=== PATIENT | female | born 1995 | race Caucasian/White ===

== ENCOUNTER 2017-06-21 14:04 | Emergency (ER) | payer BC ==
[2017-06-21] MEDS ORDERED: IBUPROFEN 600 MG TAB PO ONE ×2 (14:56→15:02)
[2017-06-21] MEDS ORDERED: ACETAMINOPHEN 325 MG TAB ONE (14:57)
[2017-06-21] MEDS ORDERED: ACETAMINOPHEN 325 MG TAB PO ONE (15:02)
[2017-06-21] MEDS ORDERED: NS 1,000 ML IV ONE ×2 (15:02→15:08)
[2017-06-21] MEDS ORDERED: HYDROmorphONE/DILAUDID 1 MG/ML INJ IVP ONE (15:08)
[2017-06-21] MEDS ORDERED: METOCLOPRAMIDE 10 MG/2 ML VIAL IVP ONE (15:08)
--- NOTE | 2017-06-21 15:13 | EDPHY ---
H & P Stated Complaint: chills, nausea, fatigue, neck pain Time Seen by Provider: 06/21/17 15:03 HPI/ROS: CHIEF COMPLAINT: Headache HISTORY OF PRESENT ILLNESS: The patient is a 21-year-old female with no significant past medical headache who comes to the emergency department complaining of headache, fever and neck stiffness. She has a mild sore throat. No sinus congestion. No nausea vomiting. No urinary symptoms. She denies risk of . REVIEW OF SYSTEMS: Constitutional: See HPI EENTM: denies: blurred vision, double vision, nose congestion Respiratory: denies: cough, shortness of breath Cardiac: denies: chest pain, irregular heart rate, lightheadedness, palpitations Gastrointestinal/Abdominal: denies: abdominal pain, diarrhea, nausea, vomiting, blood streaked stools Genitourinary: denies: dysuria, frequency, hematuria, pain Musculoskeletal: denies: joint pain, muscle pain Skin: denies: lesions, rash, jaundice, bruising Neurological: denies: headache, numbness, paresthesia, tingling, dizziness, weakness Hematologic/Lymphatic: denies: blood clots, easy bleeding, easy bruising Immunologic/allergic: denies: HIV/AIDS, transplant EXAM: GENERAL: Well-appearing, well-nourished and in no acute distress. HEAD: Atraumatic, normocephalic. EYES: Pupils equal round and reactive to light, extraocular movements intact, sclera anicteric, conjunctiva are normal. ENT: TMs normal, nares patent, oropharynx clear without exudates. Moist mucous membranes. NECK: Normal range of motion, supple without lymphadenopathy or JVD. LUNGS: Breath sounds clear to auscultation bilaterally and equal. No wheezes rales or rhonchi. HEART: Regular rate and rhythm without murmurs, rubs or gallops. ABDOMEN: Soft, nontender, normoactive bowel sounds. No guarding, no rebound. No masses appreciated. BACK: No CVA tenderness, no spinal tenderness, step-offs or deformities EXTREMITIES: Normal range of motion, no pitting or edema. No clubbing or cyanosis. NEUROLOGICAL: Cranial nerves II through XII grossly intact. Normal speech, normal gait. 5/5 strength, normal movement in all extremities, normal sensation PSYCH: Normal mood, normal affect. SKIN: Warm, dry, normal turgor, no visible rashes or lesions. Source: Patient Exam Limitations: No limitations - Medical/Surgical History Hx Asthma: No Hx Chronic Respiratory Disease: No Hx Diabetes: No Hx Cardiac Disease: No Hx Renal Disease: No Hx Cirrhosis: No Hx Alcoholism: No Hx HIV/AIDS: No Hx Splenectomy or Spleen Trauma: No Other PMH: denies - Social History Smoking Status: Never smoked Alcohol Use: Sober Drug Use: None Constitutional: Initial Vital Signs Temperature (C) 38.2 C 06/21/17 14:17 Heart Rate 109 H 06/21/17 14:17 Respiratory Rate 18 06/21/17 14:17 Blood Pressure 121/82 H 06/21/17 14:17 O2 Sat (%) 93 06/21/17 14:17 O2 Delivery Mode Room Air Allergies/Adverse Reactions: No Known Allergies Allergy (Unverified 06/21/17 14:17) Home Medications: Medication Instructions Recorded NK [No Known Home Meds] 06/21/17 Medical Decision Making ED Course/Re-evaluation: 5:30 p.m. the patient feels completely better. We discussed her CSF and lab results. She is reassured. She is eager to go home. I encouraged rest, antipyretics and hydration. She agrees with this plan. We discussed indications for returning to the emergency department. Differential Diagnosis: Partial list of the Differential diagnosis considered include but were not limited to; viral syndrome, meningitis, influenza, mononucleosis, strep throat and although unlikely based on the history and physical exam, I also considered sepsis, pneumonia, urinary tract infection, head injury. I discussed these differential diagnoses and the plan with the patient as well as the usual and expected course. The patient understands that the diagnosis is provisional and that in medicine we are not always correct and that further workup is often warranted. Usual and customary warnings were given. All of the patient's questions were answered. The patient was instructed to return to the emergency department should the symptoms at all worsen or return, otherwise to followup with the physician as we discussed. - Data Points Laboratory Results: Laboratory Results 06/21/17 15:10 06/21/17 15:08 06/21/17 06/21/17 06/21/17 16:00 16:00 15:10 WBC RBC Hgb Hct MCV MCH MCHC RDW Plt Count MPV Neut % (Auto) Lymph % (Auto) [place] % (Auto) Eos % (Auto) Baso % (Auto) Nucleat RBC Rel Count Absolute Neuts (auto) Absolute Lymphs (auto) Absolute Monos (auto) Absolute Eos (auto) Absolute Basos (auto) Absolute Nucleated RBC Immature Gran % Immature Gran # PT INR Sodium Potassium Chloride Carbon Dioxide Anion Gap BUN Creatinine Estimated GFR Glucose Calcium Beta HCG, Qual NEGATIVE CSF Tube Number 4 1 CSF Appearance CLEAR CLEAR (CLEAR) (CLEAR) CSF Color COLORLESS COLORLESS (COLORLESS) (COLORLESS) CSF Supernatant COLORLESS COLORLESS (COLORLESS) (COLORLESS) CSF WBC 0 /mm3 /mm3 0 /mm3 /mm3 (0-5) (0-5) CSF RBC 7 /mm3 H /mm3 29 /mm3 H /mm3 (0-0) (0-0) CSF Glucose 59 mg/dL mg/dL (50-75) CSF Total Protein 11 mg/dL L mg/dL (12-60) Monoscreen NEGATIVE (NEGATIVE) 06/21/17 06/21/17 06/21/17 15:10 15:10 15:08 WBC 10.13 10^3/uL H 10^3/uL (3.80-9.50) RBC 4.61 10^6/uL 10^6/uL (4.18-5.33) Hgb 14.5 g/dL g/dL (12.6-16.3) Hct 42.7 % % (38.0-47.0) MCV 92.6 fL fL (81.5-99.8) MCH 31.5 pg pg (27.9-34.1) MCHC 34.0 g/dL g/dL (32.4-36.7) RDW 11.9 % % (11.5-15.2) Plt Count 234 10^3/uL 10^3/uL (150-400) MPV 9.7 fL fL (8.7-11.7) Neut % (Auto) 73.1 % % (39.3-74.2) Lymph % (Auto) 16.0 % % (15.0-45.0) [place] % (Auto) 9.6 % % (4.5-13.0) Eos % (Auto) 0.4 % L % (0.6-7.6) Baso % (Auto) 0.5 % % (0.3-1.7) Nucleat RBC Rel Count 0.0 % % (0.0-0.2) Absolute Neuts (auto) 7.41 10^3/uL H 10^3/uL (1.70-6.50) Absolute Lymphs (auto) 1.62 10^3/uL 10^3/uL (1.00-3.00) Absolute Monos (auto) 0.97 10^3/uL H 10^3/uL (0.30-0.80) Absolute Eos (auto) 0.04 10^3/uL 10^3/uL (0.03-0.40) Absolute Basos (auto) 0.05 10^3/uL 10^3/uL (0.02-0.10) Absolute Nucleated RBC 0.00 10^3/uL 10^3/uL (0-0.01) Immature Gran % 0.4 % % (0.0-1.1) Immature Gran # 0.04 10^3/uL 10^3/uL (0.00-0.10) PT 13.4 SEC SEC (12.0-15.0) INR 1.03 (0.83-1.16) Sodium 139 mEq/L mEq/L (134-144) Potassium 3.9 mEq/L mEq/L (3.5-5.2) Chloride 101 mEq/L mEq/L (97-110) Carbon Dioxide 23 mEq/l mEq/l (22-31) Anion Gap 15 mEq/L mEq/L (8-16) BUN 9 mg/dL mg/dL (7-23) Creatinine 0.7 mg/dL mg/dL (0.6-1.0) Estimated GFR > 60 Glucose 86 mg/dL mg/dL (70-100) Calcium 9.5 mg/dL mg/dL (8.5-10.4) Beta HCG, Qual CSF Tube Number CSF Appearance CSF Color CSF Supernatant CSF WBC CSF RBC CSF Glucose CSF Total Protein Monoscreen Microbiology Results: MICROBIOLOGY 06/21/17 16:00 Cerebral Spinal Fluid Gram Stain - Final Medications Given: Discontinued Medications Acetaminophen (Tylenol) 650 mg PO EDNOW ONE Stop: 06/21/17 15:03 Last Admin: 06/21/17 15:03 Dose: 650 mg Hydromorphone HCl (Dilaudid) 1 mg IVP EDNOW ONE Stop: 06/21/17 15:09 Last Admin: 06/21/17 15:14 Dose: 1 mg Sodium Chloride (Ns) 1,000 mls @ 0 mls/hr IV ONCE ONE PRN Reason: Wide Open Stop: 06/21/17 15:03 Last Admin: 06/21/17 15:09 Dose: 1,000 mls Sodium Chloride (Ns) 1,000 mls @ 0 mls/hr IV ONCE ONE; Wide Open PRN Reason: Protocol Stop: 06/21/17 15:09 Last Admin: 06/21/17 16:34 Dose: 1,000 mls Ibuprofen (Motrin) 600 mg PO EDNOW ONE Stop: 06/21/17 15:03 Last Admin: 06/21/17 15:04 Dose: 600 mg Metoclopramide HCl (Reglan Injection) 10 mg IVP EDNOW ONE Stop: 06/21/17 15:09 Last Admin: 06/21/17 15:14 Dose: 10 mg Departure - Departure Disposition: Home, Routine, Self-Care Clinical Impression: Fever Qualifiers: Fever type: unspecified Qualified Code(s): R50.9 - Fever, unspecified Headache Qualifiers: Headache type: unspecified Headache chronicity pattern: acute headache Intractability: not intractable Qualified Code(s): R51 - Headache Condition: Fair Instructions: Fever in Adults (ED), Acute Headache (ED) Referrals: NONE *PRIMARY CARE P,. [Primary Care Provider] - As per Instructions [facility] [Clinic] - As per Instructions Stand Alone Forms: School Excuse
[2017-06-21 15:31] LABS: % IMMATURE GRANULYOCYTES 0.4 % (0.0-1.1); ABSOLUTE IMMATURE GRANULOCYTES 0.04 10^3/uL (0.00-0.10); ADD DIFF? NO; ADD MORPH? NO; ADD SCAN? NO; ATYPICAL LYMPHOCYTE FLAG 0 (0-99); FRAGMENT RBC FLAG 0 (0-99); HEMATOCRIT 42.7 % (38.0-47.0); HEMOGLOBIN 14.5 g/dL (12.6-16.3); LEFT SHIFT FLG 0 (0-99); LIPEMIA HEMOLYSIS FLAG 90 (0-99); MEAN CELL HEMOGLOBIN 31.5 pg (27.9-34.1); MEAN CELL VOLUME 92.6 fL (81.5-99.8); MEAN PLATELET VOLUME 9.7 fL (8.7-11.7); PLATELET CLUMPS FLAG 0 (0-99); PLATELET COUNT 234 10^3/uL (150-400); RED BLOOD CELL COUNT 4.61 10^6/uL (4.18-5.33); RED CELL DISTRIBUTION WIDTH 11.9 % (11.5-15.2)
[2017-06-21 15:35] LABS: INR 1.03 (0.83-1.16); PROTIME(PATIENT) 13.4 SEC (12.0-15.0)
[2017-06-21 15:40] LABS: BHCG-QUALITATIVE NEGATIVE
[2017-06-21 16:13] LABS: ANION GAP 15 mEq/L (8-16); CARBON DIOXIDE 23 mEq/l (22-31); CHLORIDE 101 mEq/L (97-110); GLUCOSE 86 mg/dL (70-100); POTASSIUM 3.9 mEq/L (3.5-5.2); SODIUM 139 mEq/L (134-144)
[2017-06-21 16:14] LABS: MONO TEST NEGATIVE (NEGATIVE)
[2017-06-21 16:14] LABS: CALCIUM 9.5 mg/dL (8.5-10.4); CREATININE 0.7 mg/dL (0.6-1.0); GLOMERULAR FILTRATION RATE > 60
[2017-06-21 16:36] VITALS: RESP 20
[2017-06-21 16:50] LABS: CSF APPEARANCE CLEAR (CLEAR); CSF COLOR COLORLESS (COLORLESS); CSF SUPERNATANT COLORLESS (COLORLESS); WBC, CSF 0 /mm3 (0-5)
[2017-06-21 17:01] LABS: PROTEIN, CSF 11 mg/dL (12-60)
[2017-06-21 17:03] LABS: CSF APPEARANCE CLEAR (CLEAR); CSF COLOR COLORLESS (COLORLESS); CSF SUPERNATANT COLORLESS (COLORLESS); WBC, CSF 0 /mm3 (0-5)
[2017-06-21 18:06] VITALS: BP 98/55; PULSE 70; TEMP 98.2; O2SAT 95
== END 2017-06-21 18:05 | disposition home or self-care (01) ==
PROC: 009U3ZX Drainage of Spinal Canal, Percutaneous Approach, Diagnostic (ICD-10-PCS; principal; 2017-06-21)
DX: R51 Headache (principal); R50.9 Fever, unspecified; E86.9 Volume depletion, unspecified
CPT/HCPCS: 96374; J1170; J2765